=== PATIENT | male | born 1995 | race African-American/Black ===

== ENCOUNTER 2017-02-13 08:56 | Emergency (ER) | payer OTHER ==
[2017-02-13 09:05] VITALS: TEMP 98.7; BMI 27.4
[2017-02-13] MEDS ORDERED: ACETAMINOPHEN 500 MG TABLET (FP) PO ONE (09:39)
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
[2017-02-13 09:52] VITALS: BP 108/72; PULSE 89
== END 2017-02-13 10:05 | disposition home or self-care (01) ==
LOC: JER 08:56
DX: S06.0X0A Concussion without loss of consciousness, initial encounter (principal); V53.5XXA Driver of pick-up truck or van injured in collision with car, pick-up truck or van in traffic accident, initial encounter; Y92.488 Other paved roadways as the place of occurrence of the external cause; Y93.89 Activity, other specified; Y99.8 Other external cause status
CPT/HCPCS: 99282-25